=== PATIENT | male | born 2000 | race Caucasian/White ===

== ENCOUNTER 2021-02-20 11:31 | Emergency (ER) | payer OTHER ==
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
[2021-02-20 12:53] VITALS: BP 131/78; PULSE 96
[2021-02-20 20:32] VITALS: O2SAT 97
== END 2021-02-20 12:59 | disposition home or self-care (01) ==
LOC: ED 11:31
DX: S20.212A Contusion of left front wall of thorax, initial encounter (principal); V43.53XA Car driver injured in collision with pick-up truck in traffic accident, initial encounter; Y92.410 Unspecified street and highway as the place of occurrence of the external cause; Z72.0 Tobacco use
CPT/HCPCS: 36000; 71260; 99285

== ENCOUNTER 2023-06-22 02:45 | Emergency (ER) | payer OTHER ==
[2023-06-22 03:36] VITALS: TEMP 98.5
[2023-06-22] MEDS ORDERED: DECADRON 10MG INJ. ONE (03:40)
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
[2023-06-22] MEDS: DECADRON 10MG INJ. IM ONE (03:45)
[2023-06-22 04:08] VITALS: BP 118/87; PULSE 92; RESP 17; O2SAT 95
== END 2023-06-22 04:11 | disposition home or self-care (01) ==
LOC: ED 02:45
DX: L23.9 Allergic contact dermatitis, unspecified cause (principal); Z79.52 Long term (current) use of systemic steroids; Z72.0 Tobacco use
CPT/HCPCS: 96372; 99282; J1100